=== PATIENT | male | born 1945 | race Caucasian/White ===

== ENCOUNTER 2016-11-02 21:40 | Inpatient (IN) | payer OTHER ==
[~2016-11-02] VITALS: Ht 182.9 cm; Wt 120.4 kg
[~2016-11-02 21:40] MED LIST: AMLODIPINE BESYL5 MG PO; ASPIR 8181 M1 PO; ASPIR-LOW81 MG PO; ATIVAN1 MG PO; AVINZA30 MG PO; B-12500 MC1 SL; CELEBREX200 MG PO; CELECOXIB100 MG PO; CENTRUM SILVER1 EAC1 PO; CENTRUM SILVER1 EAC3 PO; CEREFOLIN NAC1 EAC1 PO; CIPRO500 MG PO; CIPROFLOXACIN500 M1 PO; CRESTOR10 MG PO; CYANOCOBALAM1000 MCG PO; DILAUDID4 MG PO; DIOVAN HCT 31 TABLE1 PO; ERGOCALCIF50000 UNIT PO; FISH OIL 1,0001 EAC7 PO; FLEXERIL10 MG PO; FLOMAX0.4 MG PO; FLUTICASONE PRO16 GM BOTH NARES; GABAPENTIN300 MG PO; ISOSORBIDE MONO30 MG PO; KADIAN30 MG PO; KLOR-CON 1010 ME1 PO; KLOR-CON M1010 MEQ PO; KLOR-CON M2020 MEQ PO; LIDOCAINE700 MG TD; LIPITOR20 MG PO; LO-DOSE ASPIRIN81 M1 PO; LOPRESSOR25 MG PO; LORAZEPAM1 MG PO; LORAZEPAM2 MG PO; LYCOPENE10 MG PO; LYRICA100 MG PO; MELOXICAM7.5 MG PO; METOPROLOL TART25 MG PO; MORPHINE SULFAT15 MG PO; MORPHINE SULFAT30 M2 PO; MS CONTIN,ORAMO30 MG PO; MYRBETRIQ50 MG PO; NAMENDA10 MG PO; NEURONTIN100 MG PO; NEURONTIN300 MG PO; NEXIUM 24HR20 MG PO; NEXIUM40 MG PO; NIACIN1000 MG PO; NITROSTAT0.4 MG SL; NORVASC5 MG PO; NOVOLOG MI100 UNIT/4 SC; NOVOLOG MI100 UNIT/M PO; NOVOLOG MI100 UNIT/M SC; NUCYNTA ER250 MG PO; OXYCODONE HCL10 MG PO; PERCOCET 5/31 TABLET PO; PLAVIX75 MG PO; PRAVASTATIN SOD40 MG PO; PREDNISONE10 MG PO; SAW PALMETTO160 MG PO; SLEEP AID25 M1 PO; THERALITH XR T1 EACH PO; TRAMADOL HCL50 MG PO; VALSARTAN160 MG PO; VITAMIN B-12500 MC3 PO; VITAMIN D250000 UNIT PO; VOLTAREN 1% GE100 GM TP; WELCHOL625 MG PO; ZETIA10 MG PO; ZYRTEC10 M3 PO
[2016-11-02 22:00] LABS: BICARBONATE 27.1 mEq/L (22-26); CARBOXY HGB 2.4 % (0-5); COMMENTS - BLOOD GASES A+C+; DEVICE NC; METHEMOGLOBIN 0.8 % (0-1.5); O2 FLOW 4 L/MIN; PCO2 48 mm Hg (35-45); PO2 75 mm Hg (80-100); SITE LR; TOTAL RESP RATE 21 resp/min; pH 7.36 (7.35-7.45)
[2016-11-02 22:06] LABS: ADD MIUA? YES; BILIRUBIN NEGATIVE; BLOOD LARGE; COLOR AMBER ((YELLOW)); GLUCOSE (STRIP) NEGATIVE; KETONES NEGATIVE; LEUKOCYTES LARGE; NITRITE NEGATIVE; PROTEIN (STRIP) 100; SPECIFIC GRAVITY 1.013 (1.000-1.030)
[2016-11-02] MEDS ORDERED: ARYMO ER30 MG PO (22:21)
[2016-11-02] MEDS ORDERED: OXYCODONE HCL10 MG PO (22:21)
[2016-11-02 22:26] LABS: EPITHELIAL CELLS RARE /HPF; RED BLOOD CELLS TNTC /HPF (0-5); WHITE BLOOD CELLS TNTC /HPF (0-5)
[2016-11-02 22:27] LABS: BACTERIA 3+ /HPF; CASTS NONE SEEN /LPF; CRYSTALS NONE SEEN; MUCUS NONE SEEN /LPF; UCUL ADDED? YES
[2016-11-02 23:09] LABS: EOSINOPHIL (%) 0 % (0-5); HEMATOCRIT 39.1 % (38.0-50.0); IMMATURE GRANULOCYTE (%) 0.5 % (0.0-0.7); IMMATURE GRANULOCYTE COUNT 0.1 K/uL; INSTRUMENT ABS NEUTROPHIL CT 7.2 K/uL; LYMPHOCYTE COUNT 1.5 K/uL (1.0-2.8); MCH 33.9 PG (29.0-34.0); MCHC 33.5 G/DL (30.0-36.0); MCV 101.3 FL (86-99); MEAN PLAT.VOLUME 9.9 uM^3 (9.0-12.4); MONOCYTE (%) 9.5 % (3-12); MONOCYTE COUNT 0.9 K/uL (0-0.8); NEUTROPHIL (%) 74.6 % (45-76); NEUTROPHIL COUNT 7.2 K/uL (1.8-6.4); PLATELET COUNT 190 K/uL (156-360); RBC DIS.WIDTH-SD 45.1 % (39-53); RED BLOOD COUNT 3.86 M/uL (4.00-5.50); WHITE BLOOD COUNT 9.7 K/uL (4.1-10.2)
[2016-11-02 23:19] LABS: CHLORIDE 98 mEq/L (99-109); POTASSIUM 3.5 mEq/L (3.7-5.4); SODIUM 138 mEq/L (136-147)
[2016-11-02 23:21] LABS: GLUCOSE 119 mg/dL (70-99); INTER. NORMALIZED RATIO 1.1; PROTHROMBIN TIME 11.6 (9.2-11.2); PTT 29.9 (25-32)
[2016-11-02 23:23] LABS: ANION GAP 13 MEQ/L (2-14); TOTAL BILIRUBIN 0.8 mg/dL (0.0-1.0)
[2016-11-02 23:25] LABS: ALKALINE PHOSPHATASE 68 IU/L (3-129); GFR ESTIMATE (CALCULATED) 17 mL/min/
[2016-11-02 23:26] LABS: UREA NITROGEN (BUN) 41 mg/dL (9-23)
[2016-11-02 23:28] LABS: LIPASE 30 U/L (1.0-51.0); TROP-I INTERPRETATION NEGATIVE; TROPONIN-I 0.02 ng/mL (0.0-0.30)
[2016-11-03] VITALS (23 sets, daily range): BP systolic 84–158; BP diastolic 57–106
[2016-11-03 04:37] LABS: METH RESISTANT S AUREUS PCR NEGATIVE (NEGATIVE)
[2016-11-03 04:39] LABS: PROBE CHECK PASS; SPECIMEN PROCESSING CONTROL PASS
[2016-11-03 05:24] LABS: HEMATOCRIT 37.1 % (38.0-50.0); MCH 34.2 PG (29.0-34.0); MCHC 33.7 G/DL (30.0-36.0); MCV 101.6 FL (86-99); MEAN PLAT.VOLUME 9.9 uM^3 (9.0-12.4); PLATELET COUNT 182 K/uL (156-360); RBC DIS.WIDTH-CV 11.9 % (11.8-14.6); RED BLOOD COUNT 3.65 M/uL (4.00-5.50)
[2016-11-03 05:50] LABS: ANION GAP 11 MEQ/L (2-14); CHLORIDE 100 MEQ/L (99-109); GFR ESTIMATE (CALCULATED) 24 mL/min/; GLUCOSE 128 mg/dL (70-99); MAGNESIUM 1.7 mg/dl (1.3-2.7); POTASSIUM 3.5 MEQ/L (3.7-5.4); SAMPLE HEMOLYSIS CHECK 0; SAMPLE ICTERIC CHECK 0; SAMPLE LIPEMIA CHECK 0; SODIUM 139 MEQ/L (136-147); UREA NITROGEN (BUN) 39 mg/dL (9-23)
[2016-11-03 11:46] LABS: POINT-OF-CARE METER ID UU13113748
[2016-11-04] VITALS (22 sets, daily range): BP systolic 0–202; BP diastolic 0–128
[2016-11-04 00:04] LABS: POINT-OF-CARE METER ID UU14174217
[2016-11-04 06:08] LABS: HEMATOCRIT 41.6 % (38.0-50.0); MCH 34.6 PG (29.0-34.0); MCHC 35.8 G/DL (30.0-36.0); PLATELET COUNT 161 K/uL (156-360); RBC DIS.WIDTH-CV 11.2 % (11.8-14.6); RBC DIS.WIDTH-SD 39.9 % (39-53); RED BLOOD COUNT 4.31 M/uL (4.00-5.50); WHITE BLOOD COUNT 9.8 K/uL (4.1-10.2)
[2016-11-04 06:12] LABS: MCV 96.5 FL (86-99)
[2016-11-04 06:23] LABS: POINT-OF-CARE METER ID UU13113803
[2016-11-04 06:39] LABS: ANION GAP 10 MEQ/L (2-14); CHLORIDE 99 MEQ/L (99-109); GLUCOSE 170 mg/dL (70-99); MAGNESIUM 1.7 mg/dl (1.3-2.7); POTASSIUM 3.4 MEQ/L (3.7-5.4); SAMPLE HEMOLYSIS CHECK 0; SAMPLE ICTERIC CHECK 0; SAMPLE LIPEMIA CHECK 0; SODIUM 139 MEQ/L (136-147); UREA NITROGEN (BUN) 24 mg/dL (9-23)
[2016-11-04 06:48] LABS: GFR ESTIMATE (CALCULATED) > 59 mL/min/
[2016-11-04 13:06] LABS: POINT-OF-CARE METER ID UU13113748
[2016-11-04 17:02] LABS: POINT-OF-CARE METER ID UU13113803
[2016-11-04 21:55] LABS: POINT-OF-CARE METER ID UU13113748
[2016-11-05] VITALS (16 sets, daily range): BP systolic 138–185; BP diastolic 81–129
[2016-11-05 07:10] LABS: C DIFF TOXIN NEGATIVE (NEGATIVE)
[2016-11-05 07:11] LABS: PROBE CHECK PASS; SPECIMEN PROCESSING CONTROL PASS
[2016-11-05 08:27] LABS: HEMATOCRIT 43.8 % (38.0-50.0); MCH 35.1 PG (29.0-34.0); MCHC 37.2 G/DL (30.0-36.0); MCV 94.4 FL (86-99); MEAN PLAT.VOLUME 9.6 uM^3 (9.0-12.4); PLATELET COUNT 179 K/uL (156-360); RBC DIS.WIDTH-CV 11.4 % (11.8-14.6); RED BLOOD COUNT 4.64 M/uL (4.00-5.50); WHITE BLOOD COUNT 8.5 K/uL (4.1-10.2)
[2016-11-05 08:51] LABS: ANION GAP 13 MEQ/L (2-14); CHLORIDE 97 MEQ/L (99-109); GFR ESTIMATE (CALCULATED) > 59 mL/min/; GLUCOSE 164 mg/dL (70-99); MAGNESIUM 1.5 mg/dl (1.3-2.7); POTASSIUM 2.8 MEQ/L (3.7-5.4); SAMPLE HEMOLYSIS CHECK 0; SAMPLE ICTERIC CHECK 0; SAMPLE LIPEMIA CHECK 0; SODIUM 139 MEQ/L (136-147); UREA NITROGEN (BUN) 15 mg/dL (9-23)
[2016-11-06 06:40] VITALS: BP 152/99
[2016-11-06 07:05] LABS: HEMATOCRIT 45.9 % (38.0-50.0); MCH 33.3 PG (29.0-34.0); MCHC 35.5 G/DL (30.0-36.0); MCV 93.9 FL (86-99); MEAN PLAT.VOLUME 9.4 uM^3 (9.0-12.4); RBC DIS.WIDTH-CV 11.4 % (11.8-14.6); RBC DIS.WIDTH-SD 38.8 % (39-53); RED BLOOD COUNT 4.89 M/uL (4.00-5.50)
[2016-11-06 07:08] LABS: PLATELET COUNT 238 K/uL (156-360)
[2016-11-06 07:26] LABS: ANION GAP 13 MEQ/L (2-14); CHLORIDE 101 MEQ/L (99-109); GFR ESTIMATE (CALCULATED) > 59 mL/min/; GLUCOSE 169 mg/dL (70-99); MAGNESIUM 1.5 mg/dl (1.3-2.7); SAMPLE HEMOLYSIS CHECK 0; SAMPLE ICTERIC CHECK 0; SAMPLE LIPEMIA CHECK 0; SODIUM 139 MEQ/L (136-147); UREA NITROGEN (BUN) 14 mg/dL (9-23)
[2016-11-06 07:27] LABS: POTASSIUM 3.4 MEQ/L (3.7-5.4)
[2016-11-06 15:05] VITALS: BP 165/84
[2016-11-06 16:26] LABS: POINT-OF-CARE METER ID UU13113725
[2016-11-06 23:20] VITALS: BP 162/91
[2016-11-07 06:48] LABS: HEMATOCRIT 46.3 % (38.0-50.0); MCH 33.8 PG (29.0-34.0); MCHC 34.3 G/DL (30.0-36.0); MEAN PLAT.VOLUME 9.3 uM^3 (9.0-12.4); PLATELET COUNT 209 K/uL (156-360); RBC DIS.WIDTH-CV 11.4 % (11.8-14.6); RBC DIS.WIDTH-SD 41.3 % (39-53); RED BLOOD COUNT 4.71 M/uL (4.00-5.50); WHITE BLOOD COUNT 9.4 K/uL (4.1-10.2)
[2016-11-07 07:05] LABS: MCV 98.3 FL (86-99)
[2016-11-07 07:07] LABS: ANION GAP 11 MEQ/L (2-14); CHLORIDE 101 MEQ/L (99-109); GFR ESTIMATE (CALCULATED) > 59 mL/min/; GLUCOSE 174 mg/dL (70-99); MAGNESIUM 1.6 mg/dl (1.3-2.7); POTASSIUM 3.3 MEQ/L (3.7-5.4); SAMPLE HEMOLYSIS CHECK 0; SAMPLE ICTERIC CHECK 0; SAMPLE LIPEMIA CHECK 0; SODIUM 138 MEQ/L (136-147); UREA NITROGEN (BUN) 17 mg/dL (9-23)
[2016-11-07 07:31] VITALS: BP 132/80
[2016-11-07] MEDS ORDERED: AMPICILLIN TRI500 MG PO (11:36)
== END 2016-11-07 15:30 | disposition home or self-care (01) | DRG 871 ==
LOC: EME → EDBD 21:40 → EME 21:40 → 4WEST 11-03 00:57 → EDOF 11-03 00:57 → 4WEST 11-03 02:31 → 5EAST 11-05 16:03
PROVIDERS: Emergency Medicine; Hospitalist; Internal Medicine; Internal Medicine Critical Care Medicine; Student in an Organized Health Care Education/Training Program
DX: A41.9 Sepsis, unspecified organism (principal); N39.0 Urinary tract infection, site not specified; F41.9 Anxiety disorder, unspecified; I10 Essential (primary) hypertension; I25.10 Atherosclerotic heart disease of native coronary artery without angina pectoris; J96.91 Respiratory failure, unspecified with hypoxia; J98.11 Atelectasis; G93.41 Metabolic encephalopathy; E86.1 Hypovolemia; R65.21 Severe sepsis with septic shock; K21.9 Gastro-esophageal reflux disease without esophagitis; E78.5 Hyperlipidemia, unspecified; G89.29 Other chronic pain; E11.9 Type 2 diabetes mellitus without complications; F02.80 Dementia in other diseases classified elsewhere, unspecified severity, without behavioral disturbance, psychotic disturbance, mood disturbance, and anxiety; G30.9 Alzheimer's disease, unspecified; N17.9 Acute kidney failure, unspecified; I48.91 Unspecified atrial fibrillation; Z86.73 Personal history of transient ischemic attack (TIA), and cerebral infarction without residual deficits; Z87.442 Personal history of urinary calculi; Z87.891 Personal history of nicotine dependence; Z79.4 Long term (current) use of insulin; Z95.5 Presence of coronary angioplasty implant and graft
CPT/HCPCS: 36600; 70450; 71010; 80048; 80048 91; 80053; 81003; 82803; 82948; 83605; 83690; 83735; 84100; 84484; 85025; 85027; 85610; 85730; 87040; 87077; 87086; 87186; 87493; 87641; 93005; 94799; 99281; 99285; J0696; J1630; J1644; J1815; J2543; J3010; J3260; J3370; J3475; J3480; J7030; J7050; J7120; S0028

== ENCOUNTER 2016-11-17 19:04 | Inpatient (IN) | payer OTHER ==
[~2016-11-17] VITALS: Ht 182.9 cm; Wt 147.5 kg
[~2016-11-17 19:04] MED LIST changes: +AMPICILLIN TRI500 MG PO; +ARYMO ER30 MG PO
[2016-11-17 20:06] LABS: ADD MIUA? YES; BILIRUBIN NEGATIVE; BLOOD NEGATIVE; COLOR AMBER ((YELLOW)); GLUCOSE (STRIP) 50; KETONES NEGATIVE; LEUKOCYTES NEGATIVE; NITRITE NEGATIVE; PROTEIN (STRIP) 30; SPECIFIC GRAVITY 1.015 (1.000-1.030); UROBILINOGEN 0.2 MG/DL (0.2-1.0)
[2016-11-17 20:13] LABS: BACTERIA RARE /HPF; EPITHELIAL CELLS RARE /HPF; MUCUS 1+ /LPF; RED BLOOD CELLS 0-5 /HPF (0-5); UCUL ADDED? NO; WHITE BLOOD CELLS 0-5 /HPF (0-5)
[2016-11-17 20:35] LABS: CHLORIDE 103 mEq/L (99-109); POTASSIUM 3.9 mEq/L (3.7-5.4); SODIUM 141 mEq/L (136-147)
[2016-11-17 20:37] LABS: GLUCOSE 111 mg/dL (70-99)
[2016-11-17 20:38] LABS: ANION GAP 11 MEQ/L (2-14)
[2016-11-17 20:39] LABS: TOTAL BILIRUBIN 0.6 mg/dL (0.0-1.0)
[2016-11-17 20:41] LABS: ALKALINE PHOSPHATASE 93 IU/L (3-129); GFR ESTIMATE (CALCULATED) 21 mL/min/; INTER. NORMALIZED RATIO 1.1; PROTHROMBIN TIME 11.4 (9.2-11.2); PTT 26.6 (25-32)
[2016-11-17 20:42] LABS: UREA NITROGEN (BUN) 24 mg/dL (9-23)
[2016-11-17 20:44] LABS: LIPASE 33 U/L (1.0-51.0); TROP-I INTERPRETATION NEGATIVE; TROPONIN-I 0.02 ng/mL (0.0-0.30)
[2016-11-17 20:50] LABS: EOSINOPHIL (%) 0 % (0-5); HEMATOCRIT 40.4 % (38.0-50.0); IMMATURE GRANULOCYTE (%) 0.7 % (0.0-0.7); IMMATURE GRANULOCYTE COUNT 0.1 K/uL; INSTRUMENT ABS NEUTROPHIL CT 7.6 K/uL; LYMPHOCYTE COUNT 2.2 K/uL (1.0-2.8); MCH 33.9 PG (29.0-34.0); MCHC 33.4 G/DL (30.0-36.0); MCV 101.5 FL (86-99); MEAN PLAT.VOLUME 9.7 uM^3 (9.0-12.4); MONOCYTE (%) 8.3 % (3-12); MONOCYTE COUNT 0.9 K/uL (0-0.8); NEUTROPHIL (%) 70.5 % (45-76); NEUTROPHIL COUNT 7.6 K/uL (1.8-6.4); PLATELET COUNT 188 K/uL (156-360); RBC DIS.WIDTH-CV 12.4 % (11.8-14.6); RBC DIS.WIDTH-SD 46.8 % (39-53); RED BLOOD COUNT 3.98 M/uL (4.00-5.50); WHITE BLOOD COUNT 10.7 K/uL (4.1-10.2)
[2016-11-18] VITALS (26 sets, daily range): BP systolic 0–155; BP diastolic 0–88
[2016-11-18 01:05] LABS: BASE EXCESS -2.3 mEq/L (-3 to +3); BICARBONATE 25.3 mEq/L (22-26); CARBOXY HGB 2.5 % (0-5); METHEMOGLOBIN 0.8 % (0-1.5); PCO2 55 mm Hg (35-45); PO2 72 mm Hg (80-100)
[2016-11-18 01:06] LABS: COMMENTS - BLOOD GASES C+A+; DEVICE NC; O2 FLOW 1 L/MIN; SITE LR
[2016-11-18 01:07] LABS: pH 7.27 (7.35-7.45)
[2016-11-18 02:57] LABS: METH RESISTANT S AUREUS PCR NEGATIVE (NEGATIVE)
[2016-11-18 03:00] LABS: PROBE CHECK PASS; SPECIMEN PROCESSING CONTROL PASS
[2016-11-18 05:24] LABS: POINT-OF-CARE METER ID UU14174217
[2016-11-18 05:44] LABS: TROP-I INTERPRETATION NEGATIVE; TROPONIN-I < 0.01 ng/mL (0.0-0.30)
[2016-11-18 06:04] LABS: ANION GAP 10 MEQ/L (2-14); CHLORIDE 108 MEQ/L (99-109); GLUCOSE 141 mg/dL (70-99); MAGNESIUM 1.2 mg/dl (1.3-2.7); SAMPLE HEMOLYSIS CHECK 0; SAMPLE ICTERIC CHECK 0; SAMPLE LIPEMIA CHECK 0; SODIUM 141 MEQ/L (136-147); UREA NITROGEN (BUN) 22 mg/dL (9-23)
[2016-11-18 06:10] LABS: HEMATOCRIT 33.6 % (38.0-50.0); MCH 35.3 PG (29.0-34.0); MCHC 33.9 G/DL (30.0-36.0); MEAN PLAT.VOLUME 10.1 uM^3 (9.0-12.4); PLATELET COUNT 144 K/uL (156-360); RBC DIS.WIDTH-CV 12.8 % (11.8-14.6); RBC DIS.WIDTH-SD 48.4 % (39-53); RED BLOOD COUNT 3.23 M/uL (4.00-5.50)
[2016-11-18 06:33] LABS: GFR ESTIMATE (CALCULATED) 27 mL/min/
[2016-11-18 11:51] LABS: POINT-OF-CARE METER ID UU13113803; POINT-OF-CARE USER ID AGYTJR
[2016-11-18 13:03] LABS: TROP-I INTERPRETATION NEGATIVE; TROPONIN-I 0.02 ng/mL (0.0-0.30)
[2016-11-18 17:36] LABS: POINT-OF-CARE METER ID UU13113803; POINT-OF-CARE USER ID AGYTJR
[2016-11-18 18:13] LABS: TROP-I INTERPRETATION NEGATIVE; TROPONIN-I 0.01 ng/mL (0.0-0.30)
[2016-11-19] VITALS (8 sets, daily range): BP systolic 124–187; BP diastolic 81–113
[2016-11-19 00:01] LABS: POINT-OF-CARE METER ID UU13113698
[2016-11-19 00:26] LABS: POINT-OF-CARE METER ID UU13113781
[2016-11-19 06:04] LABS: POINT-OF-CARE METER ID UU14174216
[2016-11-19 07:27] LABS: MCH 33.6 PG (29.0-34.0); MCHC 34.1 G/DL (30.0-36.0); MCV 98.7 FL (86-99); MEAN PLAT.VOLUME 10.4 uM^3 (9.0-12.4); PLATELET COUNT 118 K/uL (156-360); RBC DIS.WIDTH-CV 11.9 % (11.8-14.6); RBC DIS.WIDTH-SD 43.8 % (39-53); RED BLOOD COUNT 3.75 M/uL (4.00-5.50); WHITE BLOOD COUNT 5.9 K/uL (4.1-10.2)
[2016-11-19 07:35] LABS: ANION GAP 9 MEQ/L (2-14); CHLORIDE 107 MEQ/L (99-109); GLUCOSE 125 mg/dL (70-99); POTASSIUM 3.7 MEQ/L (3.7-5.4); SAMPLE HEMOLYSIS CHECK 1; SAMPLE ICTERIC CHECK 0; SAMPLE LIPEMIA CHECK 0; SODIUM 141 MEQ/L (136-147); UREA NITROGEN (BUN) 14 mg/dL (9-23)
[2016-11-19 07:36] LABS: GFR ESTIMATE (CALCULATED) 49 mL/min/; MAGNESIUM 1.9 mg/dl (1.3-2.7)
[2016-11-19 11:15] LABS: D-DIMER ELISA 3.78 mg/L FEU (< 0.57)
[2016-11-19 14:26] LABS: POINT-OF-CARE METER ID UU14174216
[2016-11-19 23:50] LABS: POINT-OF-CARE METER ID UU13113781
[2016-11-20] VITALS (7 sets, daily range): BP systolic 105–174; BP diastolic 51–109
[2016-11-20 05:35] LABS: HEMATOCRIT 35.5 % (38.0-50.0); MCH 34.3 PG (29.0-34.0); MCHC 35.5 G/DL (30.0-36.0); MCV 96.7 FL (86-99); MEAN PLAT.VOLUME 11.1 uM^3 (9.0-12.4); PLATELET COUNT 112 K/uL (156-360); RBC DIS.WIDTH-CV 11.6 % (11.8-14.6); RED BLOOD COUNT 3.67 M/uL (4.00-5.50); WHITE BLOOD COUNT 7.3 K/uL (4.1-10.2)
[2016-11-20 06:03] LABS: ANION GAP 10 MEQ/L (2-14); CHLORIDE 101 MEQ/L (99-109); GFR ESTIMATE (CALCULATED) > 59 mL/min/; GLUCOSE 120 mg/dL (70-99); MAGNESIUM 1.5 mg/dl (1.3-2.7); POTASSIUM 3.5 MEQ/L (3.7-5.4); SAMPLE HEMOLYSIS CHECK 1; SAMPLE ICTERIC CHECK 0; SAMPLE LIPEMIA CHECK 0; SODIUM 139 MEQ/L (136-147); UREA NITROGEN (BUN) 10 mg/dL (9-23)
[2016-11-20] MEDS ORDERED: ASPIR-LOW81 MG PO (14:29)
[2016-11-20] MEDS ORDERED: METOPROLOL TART50 MG PO (14:32)
[2016-11-20] MEDS ORDERED: MORPHINE SULFAT30 M2 PO (14:34)
[2016-11-20] MEDS ORDERED: CARISOPRODOL350 MG PO (14:34)
[2016-11-20] MEDS ORDERED: ATORVASTATIN CA10 MG PO (14:37)
[2016-11-20] MEDS ORDERED: TAMSULOSIN HCL0.4 MG PO (14:38)
[2016-11-20] MEDS ORDERED: VALSARTAN-HCTZ1 EAC3 PO (14:42)
[2016-11-20 20:56] LABS: POINT-OF-CARE USER ID ENVMNS
[2016-11-21] VITALS (7 sets, daily range): BP systolic 151–197; BP diastolic 82–121
[2016-11-21 05:59] LABS: HEMATOCRIT 37.7 % (38.0-50.0); MCH 34.5 PG (29.0-34.0); MCHC 36.1 G/DL (30.0-36.0); MCV 95.7 FL (86-99); MEAN PLAT.VOLUME 9.7 uM^3 (9.0-12.4); PLATELET COUNT 134 K/uL (156-360); RBC DIS.WIDTH-CV 11.7 % (11.8-14.6); RBC DIS.WIDTH-SD 40.6 % (39-53); RED BLOOD COUNT 3.94 M/uL (4.00-5.50)
[2016-11-21 06:21] LABS: ANION GAP 11 MEQ/L (2-14); CHLORIDE 100 MEQ/L (99-109); GFR ESTIMATE (CALCULATED) > 59 mL/min/; GLUCOSE 111 mg/dL (70-99); MAGNESIUM 1.6 mg/dl (1.3-2.7); POTASSIUM 2.8 MEQ/L (3.7-5.4); SAMPLE HEMOLYSIS CHECK 0; SAMPLE ICTERIC CHECK 0; SAMPLE LIPEMIA CHECK 0; SODIUM 140 MEQ/L (136-147); UREA NITROGEN (BUN) 10 mg/dL (9-23)
[2016-11-21 18:37] LABS: ANION GAP 13 MEQ/L (2-14); CHLORIDE 100 MEQ/L (99-109); GFR ESTIMATE (CALCULATED) > 59 mL/min/; GLUCOSE 133 mg/dL (70-99); MAGNESIUM 1.8 mg/dl (1.3-2.7); POTASSIUM 3.8 MEQ/L (3.7-5.4); SAMPLE HEMOLYSIS CHECK 2; SAMPLE ICTERIC CHECK 0; SAMPLE LIPEMIA CHECK 0; SODIUM 139 MEQ/L (136-147); UREA NITROGEN (BUN) 11 mg/dL (9-23)
[2016-11-22 00:01] VITALS: BP 179/113
[2016-11-22 04:26] LABS: HEMATOCRIT 38.5 % (38.0-50.0); MCH 33.7 PG (29.0-34.0); MCHC 35.6 G/DL (30.0-36.0); MCV 94.8 FL (86-99); MEAN PLAT.VOLUME 9.6 uM^3 (9.0-12.4); PLATELET COUNT 147 K/uL (156-360); RBC DIS.WIDTH-CV 11.6 % (11.8-14.6); RBC DIS.WIDTH-SD 40.3 % (39-53); RED BLOOD COUNT 4.06 M/uL (4.00-5.50); WHITE BLOOD COUNT 6.3 K/uL (4.1-10.2)
[2016-11-22 04:30] VITALS: BP 164/91
[2016-11-22 04:39] LABS: CHLORIDE 105 mEq/L (99-109); POTASSIUM 3.4 mEq/L (3.7-5.4)
[2016-11-22 04:40] LABS: MAGNESIUM 1.6 mg/dL (1.3-2.7); SODIUM 141 mEq/L (136-147)
[2016-11-22 04:42] LABS: GLUCOSE 113 mg/dL (70-99)
[2016-11-22 04:43] LABS: ANION GAP 10 MEQ/L (2-14)
[2016-11-22 04:45] LABS: GFR ESTIMATE (CALCULATED) > 59 mL/min/
[2016-11-22 04:46] LABS: UREA NITROGEN (BUN) 12 mg/dL (9-23)
[2016-11-22 07:50] LABS: POINT-OF-CARE METER ID UU13113698; POINT-OF-CARE USER ID ENVKC36
[2016-11-22 08:10] VITALS: BP 195/120
[2016-11-22 11:58] LABS: POINT-OF-CARE METER ID UU13113781
[2016-11-22 14:02] VITALS: BP 180/120
[2016-11-22 15:49] VITALS: BP 160/80
[2016-11-22 16:54] LABS: POINT-OF-CARE METER ID UU13113781
[2016-11-22 20:15] VITALS: BP 162/97
[2016-11-22 21:03] LABS: POINT-OF-CARE METER ID UU13113698
[2016-11-23] VITALS: BP 154/87
[2016-11-23 02:30] VITALS: BP 164/78
[2016-11-23 04:46] LABS: EOSINOPHIL (%) 0 % (0-5); HEMATOCRIT 38.4 % (38.0-50.0); IMMATURE GRANULOCYTE (%) 0.2 % (0.0-0.7); INSTRUMENT ABS NEUTROPHIL CT 4.6 K/uL; LYMPHOCYTE COUNT 1.3 K/uL (1.0-2.8); MCH 33.6 PG (29.0-34.0); MCHC 35.2 G/DL (30.0-36.0); MCV 95.5 FL (86-99); MONOCYTE (%) 7.9 % (3-12); MONOCYTE COUNT 0.5 K/uL (0-0.8); NEUTROPHIL (%) 71.5 % (45-76); NEUTROPHIL COUNT 4.6 K/uL (1.8-6.4); PLATELET COUNT 151 K/uL (156-360); RBC DIS.WIDTH-CV 11.8 % (11.8-14.6); RBC DIS.WIDTH-SD 40.8 % (39-53); RED BLOOD COUNT 4.02 M/uL (4.00-5.50); WHITE BLOOD COUNT 6.4 K/uL (4.1-10.2)
[2016-11-23 05:01] LABS: CHLORIDE 108 mEq/L (99-109); MAGNESIUM 1.6 mg/dL (1.3-2.7); POTASSIUM 3.8 mEq/L (3.7-5.4); SODIUM 143 mEq/L (136-147)
[2016-11-23 05:03] LABS: GLUCOSE 122 mg/dL (70-99)
[2016-11-23 05:04] LABS: ANION GAP 10 MEQ/L (2-14)
[2016-11-23 05:07] LABS: GFR ESTIMATE (CALCULATED) > 59 mL/min/; UREA NITROGEN (BUN) 12 mg/dL (9-23)
[2016-11-23 07:29] VITALS: BP 138/77
[2016-11-23 07:55] LABS: POINT-OF-CARE METER ID UU13113781; POINT-OF-CARE USER ID NUTSLF44
[2016-11-23 11:39] VITALS: BP 165/79
[2016-11-23 12:42] LABS: POINT-OF-CARE METER ID UU13113781; POINT-OF-CARE USER ID NUTSLF44
[2016-11-23 15:09] VITALS: BP 183/91
[2016-11-23] MEDS ORDERED: ELIQUIS5 MG PO (16:08)
[2016-11-23] MEDS ORDERED: LOPRESSOR100 M1 PO (16:08)
[2016-11-23] MEDS ORDERED: DILTIAZEM 24HR180 MG PO (16:08)
[2016-11-23] MEDS ORDERED: AMOX TR-K CLV1 EAC4 PO (16:08)
[2016-11-23] MEDS ORDERED: MORPHINE SULFAT15 M1 PO (16:15)
[2016-11-23] MEDS ORDERED: MORPHINE SULFAT15 MG PO (16:15)
[2016-11-23] MEDS ORDERED: SENNA-DOCUSATE1 EAC1 PO (16:16)
[2016-11-23] MEDS ORDERED: LISINOPRIL10 MG PO (16:17)
[2016-11-23] MEDS ORDERED: KLOR-CON M1010 MEQ PO (16:19)
== END 2016-11-23 16:59 | disposition home health service (06) | DRG 871 ==
LOC: EME → EDBD 19:04 → EME 19:04 → 4EAST 23:26 → 4WEST 23:26 → EDOF 23:26 → 4WEST 11-18 01:31 → 4EAST 11-18 20:42
PROVIDERS: Emergency Medicine; Hospitalist; Student in an Organized Health Care Education/Training Program
DX: A41.9 Sepsis, unspecified organism (principal); J96.01 Acute respiratory failure with hypoxia; J18.9 Pneumonia, unspecified organism; G93.41 Metabolic encephalopathy; N17.9 Acute kidney failure, unspecified; R65.21 Severe sepsis with septic shock; E86.0 Dehydration; E86.1 Hypovolemia; E87.2 Acidosis; I48.2 Chronic atrial fibrillation; I27.2 Other secondary pulmonary hypertension; E87.6 Hypokalemia; I10 Essential (primary) hypertension; I25.10 Atherosclerotic heart disease of native coronary artery without angina pectoris; E11.9 Type 2 diabetes mellitus without complications; E78.5 Hyperlipidemia, unspecified; G30.9 Alzheimer's disease, unspecified; F02.80 Dementia in other diseases classified elsewhere, unspecified severity, without behavioral disturbance, psychotic disturbance, mood disturbance, and anxiety; F31.9 Bipolar disorder, unspecified; F41.9 Anxiety disorder, unspecified; G89.29 Other chronic pain; M48.00 Spinal stenosis, site unspecified; K21.9 Gastro-esophageal reflux disease without esophagitis; N40.0 Benign prostatic hyperplasia without lower urinary tract symptoms; Y95 Nosocomial condition; Z79.02 Long term (current) use of antithrombotics/antiplatelets; Z79.4 Long term (current) use of insulin; Z79.82 Long term (current) use of aspirin; I69.30 Unspecified sequelae of cerebral infarction; Z87.891 Personal history of nicotine dependence; Z95.5 Presence of coronary angioplasty implant and graft
CPT/HCPCS: 36600; 70450; 71010; 71250; 73630; 74000; 80048; 80048 91; 80053; 81003; 82803; 82948; 83605; 83690; 83735; 83880; 84100; 84484; 85025; 85027; 85379; 85610; 85730; 87040; 87641; 92610 GN; 93005; 93306; 94799; 99281; 99285; J0456; J1630; J1644; J1650; J1815; J2060; J2543; J3370; J3475; J3480; J7030; J7050; J7120; P9045; S0028

== ENCOUNTER 2016-12-09 13:10 | Inpatient (IN) | payer OTHER ==
[~2016-12-09] VITALS: Ht 182.9 cm; Wt 116.9 kg
[~2016-12-09 13:10] MED LIST changes: +AMOX TR-K CLV1 EAC4 PO; +ATORVASTATIN CA10 MG PO; +CARISOPRODOL350 MG PO; +DILTIAZEM 24HR180 MG PO; +ELIQUIS5 MG PO; +LISINOPRIL10 MG PO; +LOPRESSOR100 M1 PO; +METOPROLOL TART50 MG PO; +MORPHINE SULFAT15 M1 PO; +SENNA-DOCUSATE1 EAC1 PO; +TAMSULOSIN HCL0.4 MG PO; +VALSARTAN-HCTZ1 EAC3 PO
[2016-12-09 14:26] LABS: HEMATOCRIT 40.1 % (38.0-50.0); MCH 34.2 PG (29.0-34.0); MCHC 33.7 G/DL (30.0-36.0); MCV 101.5 FL (86-99); PLATELET COUNT 173 K/uL (156-360); RBC DIS.WIDTH-CV 13.1 % (11.8-14.6); RBC DIS.WIDTH-SD 49.1 % (39-53); RED BLOOD COUNT 3.95 M/uL (4.00-5.50); WHITE BLOOD COUNT 9.8 K/uL (4.1-10.2)
[2016-12-09 14:32] LABS: CHLORIDE 102 mEq/L (99-109); POTASSIUM 3.8 mEq/L (3.7-5.4); SODIUM 141 mEq/L (136-147)
[2016-12-09 14:33] LABS: MAGNESIUM 1.9 mg/dL (1.3-2.7)
[2016-12-09 14:34] LABS: GLUCOSE 125 mg/dL (70-99)
[2016-12-09 14:36] LABS: ANION GAP 12 MEQ/L (2-14); TOTAL BILIRUBIN 0.9 mg/dL (0.0-1.0)
[2016-12-09 14:38] LABS: ALKALINE PHOSPHATASE 96 IU/L (3-129); GFR ESTIMATE (CALCULATED) 22 mL/min/
[2016-12-09 14:39] LABS: UREA NITROGEN (BUN) 45 mg/dL (9-23)
[2016-12-09 14:41] LABS: CREATINE KINASE 86 IU/L (1-294); TOTAL CK 86 IU/L (1-294)
[2016-12-09 14:43] LABS: TROP-I INTERPRETATION NEGATIVE; TROPONIN-I < 0.01 ng/mL (0.0-0.30)
[2016-12-09 14:47] LABS: CK-MB 2.2 ng/mL (0.0-4.9)
[2016-12-09 17:17] LABS: D-DIMER ELISA < 150.00 ng/mLDDU (<230)
[2016-12-09] MEDS ORDERED: DILTIAZEM 24HR180 M3 PO (17:17)
[2016-12-09] MEDS ORDERED: LISINOPRIL10 MG PO (17:18)
[2016-12-09] MEDS ORDERED: MS CONTIN,ORAMO30 MG PO (17:19)
[2016-12-09] MEDS ORDERED: KLOR-CON M1010 MEQ PO (17:19)
[2016-12-09] MEDS ORDERED: SENNA-DOCUSATE1 EAC1 PO (17:20)
[2016-12-09] MEDS ORDERED: NOVOLIN,HU100 UNITS/ SC (17:21)
[2016-12-09 17:38] LABS: Estimated Average Glucose 157 mg/dL (70-123); HEMOGLOBIN A1c (GLYCOHEMOGLOB) 7.1 % HGB (Below 5.7)
[2016-12-09 18:00] VITALS: BP 114/60
[2016-12-09 21:13] VITALS: BP 104/65
[2016-12-10] VITALS (7 sets, daily range): BP systolic 120–140; BP diastolic 59–81
[2016-12-10 01:27] LABS: TROP-I INTERPRETATION NEGATIVE; TROPONIN-I < 0.01 ng/mL (0.0-0.30)
[2016-12-10 05:49] LABS: POINT-OF-CARE USER ID 608261329
[2016-12-10 07:00] LABS: HEMATOCRIT 37.8 % (38.0-50.0); MCH 35.8 PG (29.0-34.0); MCHC 35.2 G/DL (30.0-36.0); MCV 101.9 FL (86-99); MEAN PLAT.VOLUME 10.2 uM^3 (9.0-12.4); PLATELET COUNT 153 K/uL (156-360); RBC DIS.WIDTH-CV 13.1 % (11.8-14.6); RBC DIS.WIDTH-SD 49.1 % (39-53); RED BLOOD COUNT 3.71 M/uL (4.00-5.50); WHITE BLOOD COUNT 7.2 K/uL (4.1-10.2)
[2016-12-10 07:06] LABS: TROP-I INTERPRETATION NEGATIVE; TROPONIN-I 0.01 ng/mL (0.0-0.30)
[2016-12-10 07:10] LABS: ANION GAP 9 MEQ/L (2-14); CHLORIDE 104 MEQ/L (99-109); GFR ESTIMATE (CALCULATED) 49 mL/min/; GLUCOSE 121 mg/dL (70-99); POTASSIUM 3.8 MEQ/L (3.7-5.4); SAMPLE HEMOLYSIS CHECK 0; SAMPLE ICTERIC CHECK 0; SAMPLE LIPEMIA CHECK 0; SODIUM 141 MEQ/L (136-147); UREA NITROGEN (BUN) 38 mg/dL (9-23)
[2016-12-10 08:14] LABS: BILIRUBIN NEGATIVE; BLOOD NEGATIVE; COLOR YELLOW ((YELLOW)); GLUCOSE (STRIP) NEGATIVE; KETONES NEGATIVE; LEUKOCYTES NEGATIVE; NITRITE NEGATIVE; PROTEIN (STRIP) NEGATIVE; SPECIFIC GRAVITY 1.015 (1.000-1.030); UROBILINOGEN 0.2 MG/DL (0.2-1.0)
[2016-12-10 08:21] LABS: ADD MIUA? NO; UCUL ADDED? NO
[2016-12-11 03:32] VITALS: BP 160/100
[2016-12-11 04:31] VITALS: BP 172/94
[2016-12-11 05:44] LABS: POINT-OF-CARE METER ID UU13113725
[2016-12-11 06:24] LABS: HEMATOCRIT 41.6 % (38.0-50.0); MCH 34.4 PG (29.0-34.0); MCHC 34.6 G/DL (30.0-36.0); MCV 99.5 FL (86-99); MEAN PLAT.VOLUME 10.2 uM^3 (9.0-12.4); PLATELET COUNT 171 K/uL (156-360); RBC DIS.WIDTH-CV 12.5 % (11.8-14.6); RBC DIS.WIDTH-SD 45.7 % (39-53); RED BLOOD COUNT 4.18 M/uL (4.00-5.50); WHITE BLOOD COUNT 6.4 K/uL (4.1-10.2)
[2016-12-11 06:59] LABS: ANION GAP 8 MEQ/L (2-14); CHLORIDE 104 MEQ/L (99-109); GFR ESTIMATE (CALCULATED) > 59 mL/min/; GLUCOSE 127 mg/dL (70-99); POTASSIUM 3.6 MEQ/L (3.7-5.4); SAMPLE HEMOLYSIS CHECK 0; SAMPLE ICTERIC CHECK 0; SAMPLE LIPEMIA CHECK 0; SODIUM 141 MEQ/L (136-147); UREA NITROGEN (BUN) 24 mg/dL (9-23)
[2016-12-11 07:42] VITALS: BP 168/99
[2016-12-11] MEDS ORDERED: NOVOLOG PE100 UNITS/ SC (08:10)
[2016-12-11] MEDS ORDERED: TRAMADOL HCL50 MG PO (10:48)
[2016-12-11] MEDS ORDERED: LOPRESSOR100 M1 PO (11:32)
[2016-12-11 12:02] VITALS: BP 161/94
== END 2016-12-11 17:30 | disposition home health service (06) | DRG 917 ==
LOC: EME 13:10 → 5EAST 16:30 → EDOF 16:30 → ENRESERV 16:35 → 5EAST 17:54
PROVIDERS: Emergency Medicine; Internal Medicine
DX: T40.2X1A Poisoning by other opioids, accidental (unintentional), initial encounter (principal); R55 Syncope and collapse; G93.41 Metabolic encephalopathy; N17.9 Acute kidney failure, unspecified; E86.0 Dehydration; I25.10 Atherosclerotic heart disease of native coronary artery without angina pectoris; I10 Essential (primary) hypertension; E78.5 Hyperlipidemia, unspecified; E11.9 Type 2 diabetes mellitus without complications; F31.9 Bipolar disorder, unspecified; K21.9 Gastro-esophageal reflux disease without esophagitis; G30.9 Alzheimer's disease, unspecified; F02.80 Dementia in other diseases classified elsewhere, unspecified severity, without behavioral disturbance, psychotic disturbance, mood disturbance, and anxiety; I48.0 Paroxysmal atrial fibrillation; F41.9 Anxiety disorder, unspecified; G89.29 Other chronic pain; M54.5 Low back pain; I95.9 Hypotension, unspecified; R00.0 Tachycardia, unspecified; Z86.73 Personal history of transient ischemic attack (TIA), and cerebral infarction without residual deficits; Z79.01 Long term (current) use of anticoagulants; Z87.891 Personal history of nicotine dependence; Z95.5 Presence of coronary angioplasty implant and graft; Z79.891 Long term (current) use of opiate analgesic; Z79.82 Long term (current) use of aspirin; Z79.02 Long term (current) use of antithrombotics/antiplatelets; Z79.4 Long term (current) use of insulin
CPT/HCPCS: 70450; 71010; 76770; 80048; 80053; 81003; 82550; 82553; 82948; 83036; 83605; 83735; 84484; 85027; 85379; 87040; 93005; 95819; 99281; 99285; J1815; J7030

== ENCOUNTER 2017-05-10 23:30 | Emergency (ER) | payer OTHER ==
[~2017-05-10] VITALS: Ht 182.9 cm; Wt 128.1 kg
[~2017-05-10 23:30] MED LIST changes: +DILTIAZEM 24HR180 M3 PO; +NOVOLIN,HU100 UNITS/ SC; +NOVOLOG PE100 UNITS/ SC
[2017-05-11 03:22] VITALS: BP 101/72
[2017-05-11] MEDS ORDERED: VITAMIN D2000 UNI1 PO (22:43)
[2017-05-11] MEDS ORDERED: MORPHINE SULFAT15 MG PO (22:44)
[2017-05-11] MEDS ORDERED: MORPHINE SULFAT30 M2 PO (22:45)
[2017-05-11] MEDS ORDERED: BETAMETHASONE D50 G1 TP (22:46)
[2017-05-11] MEDS ORDERED: CARISOPRODOL350 MG PO (22:46)
[2017-05-11] MEDS ORDERED: NITROGLYCERIN0.4 MG SL (22:49)
[2017-05-11] MEDS ORDERED: CARTIA XT180 MG PO (22:52)
[2017-05-11] MEDS ORDERED: LYRICA100 MG PO (22:53)
[2017-05-11] MEDS ORDERED: VALSARTAN-HCTZ1 EAC3 PO (22:53)
[2017-05-11] MEDS ORDERED: LOPRESSOR50 MG PO (22:54)
== END 2017-05-11 03:27 | disposition home or self-care (01) ==
LOC: EME 23:30
DX: R40.0 Somnolence (principal); G89.29 Other chronic pain; M54.5 Low back pain; M25.511 Pain in right shoulder; M25.512 Pain in left shoulder; Z79.891 Long term (current) use of opiate analgesic; G30.9 Alzheimer's disease, unspecified; F02.80 Dementia in other diseases classified elsewhere, unspecified severity, without behavioral disturbance, psychotic disturbance, mood disturbance, and anxiety; I10 Essential (primary) hypertension; E11.9 Type 2 diabetes mellitus without complications; Z79.4 Long term (current) use of insulin; Z79.02 Long term (current) use of antithrombotics/antiplatelets; Z79.82 Long term (current) use of aspirin; Z86.73 Personal history of transient ischemic attack (TIA), and cerebral infarction without residual deficits; Z95.5 Presence of coronary angioplasty implant and graft; Z87.891 Personal history of nicotine dependence
CPT/HCPCS: 99281; 99284

== ENCOUNTER 2017-05-11 13:30 | Inpatient (IN) | payer OTHER ==
[~2017-05-11] VITALS: Ht 182.9 cm; Wt 128.4 kg
[2017-05-11 14:45] LABS: BASOPHIL (%) 0.3 % (0-1); EOSINOPHIL (%) 0 % (0-5); HEMATOCRIT 39.7 % (38.0-50.0); HEMOGLOBIN 13.6 G/DL (12.5-16.6); IMMATURE GRANULOCYTE (%) 0.3 % (0.0-0.7); LYMPHOCYTE COUNT 1.4 K/uL (1.0-2.8); MCH 33.3 PG (29.0-34.0); MCHC 34.3 G/DL (30.0-36.0); MCV 97.1 FL (86-99); MONOCYTE (%) 9.6 % (3-12); MONOCYTE COUNT 0.7 K/uL (0-0.8); NEUTROPHIL (%) 70.8 % (45-76); NEUTROPHIL COUNT 5.2 K/uL (1.8-6.4); PLATELET COUNT 164 K/uL (156-360); RBC DIS.WIDTH-CV 12.7 % (11.8-14.6); RBC DIS.WIDTH-SD 44.9 % (39-53); RED BLOOD COUNT 4.09 M/uL (4.00-5.50); WHITE BLOOD COUNT 7.3 K/uL (4.1-10.2)
[2017-05-11 14:48] LABS: APPEARANCE CLEAR ((CLEAR)); BILIRUBIN NEGATIVE; BLOOD NEGATIVE; COLOR YELLOW ((YELLOW)); GLUCOSE (STRIP) NEGATIVE; KETONES NEGATIVE; LEUKOCYTES NEGATIVE; NITRITE NEGATIVE; PROTEIN (STRIP) NEGATIVE; SPECIFIC GRAVITY 1.017 (1.000-1.030); UCUL ADDED? NO; UROBILINOGEN 0.2 MG/DL (0.2-1.0)
[2017-05-11 14:54] LABS: CHLORIDE 102 mEq/L (99-109); POTASSIUM 3.6 mEq/L (3.7-5.4); SODIUM 140 mEq/L (136-147)
[2017-05-11 14:55] LABS: GLUCOSE 130 mg/dL (70-99)
[2017-05-11 14:59] LABS: CREATININE 1.6 mg/dL (0.6-1.3); GFR ESTIMATE (CALCULATED) 46 mL/min/ (58.99-99999)
[2017-05-11 15:00] LABS: UREA NITROGEN (BUN) 41 mg/dL (9-23)
[2017-05-11 19:33] LABS: TROP-I INTERPRETATION NEGATIVE; TROPONIN-I < 0.01 ng/mL (0.0-0.30)
[2017-05-11] MEDS ORDERED: VITAMIN D2000 UNI1 PO (22:43)
[2017-05-11] MEDS ORDERED: MORPHINE SULFAT15 MG PO (22:44)
[2017-05-11] MEDS ORDERED: MORPHINE SULFAT30 M2 PO (22:45)
[2017-05-11] MEDS ORDERED: CARISOPRODOL350 MG PO (22:46)
[2017-05-11] MEDS ORDERED: BETAMETHASONE D50 G1 TP (22:46)
[2017-05-11] MEDS ORDERED: NITROGLYCERIN0.4 MG SL (22:49)
[2017-05-11] MEDS ORDERED: CARTIA XT180 MG PO (22:52)
[2017-05-11] MEDS ORDERED: VALSARTAN-HCTZ1 EAC3 PO (22:53)
[2017-05-11] MEDS ORDERED: LYRICA100 MG PO (22:53)
[2017-05-11] MEDS ORDERED: LOPRESSOR50 MG PO (22:54)
[2017-05-12 06:52] LABS: HEMATOCRIT 40.2 % (38.0-50.0); MCH 33.9 PG (29.0-34.0); MCHC 34.8 G/DL (30.0-36.0); MCV 97.3 FL (86-99); PLATELET COUNT 148 K/uL (156-360); RBC DIS.WIDTH-CV 12.5 % (11.8-14.6); RBC DIS.WIDTH-SD 44.8 % (39-53); RED BLOOD COUNT 4.13 M/uL (4.00-5.50)
[2017-05-12 07:39] LABS: POTASSIUM 3.6 mEq/L (3.7-5.4)
[2017-05-12 07:44] LABS: GFR ESTIMATE (CALCULATED) > 59 mL/min/ (58.99-99999); SODIUM 139 mEq/L (136-147)
[2017-05-12 07:45] LABS: UREA NITROGEN (BUN) 22 mg/dL (9-23)
[2017-05-12 07:46] LABS: GLUCOSE 170 mg/dL (70-99)
[2017-05-12 07:47] LABS: CHLORIDE 102 mEq/L (99-109)
[2017-05-12 09:22] LABS: ALBUMIN 3.5 g/dL (3.2-4.8)
[2017-05-12 09:25] LABS: TOTAL PROTEIN 6.9 g/dL (6.4-8.3)
[2017-05-12 09:26] LABS: TOTAL BILIRUBIN 0.7 mg/dL (0.0-1.0)
[2017-05-12 09:27] LABS: ALKALINE PHOSPHATASE 86 IU/L (3-129)
[2017-05-12 09:30] LABS: AST (GOT) 43 IU/L (2-34); DIRECT BILIRUBIN 0.3 mg/dL (0.0-0.3)
[2017-05-12 09:31] LABS: ALT (GPT) 29 IU/L (3-49)
[2017-05-12 13:32] VITALS: BP 131/81
[2017-05-12 18:50] VITALS: BP 140/72
[2017-05-12 21:39] VITALS: BP 167/88
[2017-05-12 23:05] VITALS: BP 145/91
[2017-05-13 03:30] VITALS: BP 135/93
[2017-05-13 07:12] LABS: HEMOGLOBIN 12.5 G/DL (12.5-16.6); MCH 32.5 PG (29.0-34.0); MCHC 32.9 G/DL (30.0-36.0); MCV 98.7 FL (86-99); PLATELET COUNT 137 K/uL (156-360); RBC DIS.WIDTH-CV 12.4 % (11.8-14.6); RBC DIS.WIDTH-SD 44.9 % (39-53); RED BLOOD COUNT 3.85 M/uL (4.00-5.50); WHITE BLOOD COUNT 5.9 K/uL (4.1-10.2)
[2017-05-13 07:15] VITALS: BP 159/76
[2017-05-13 07:24] LABS: CHLORIDE 103 MEQ/L (99-109); CREATININE 0.9 MG/DL (0.6-1.3); GFR ESTIMATE (CALCULATED) > 59 mL/min/ (58.99-99999); GLUCOSE 136 mg/dL (70-99); POTASSIUM 4.1 MEQ/L (3.7-5.4); SODIUM 143 MEQ/L (136-147); UREA NITROGEN (BUN) 14 mg/dL (9-23)
[2017-05-13 10:53] VITALS: BP 141/87
[2017-05-13] MEDS ORDERED: OXYCODONE HCL5 MG PO (11:40)
[2017-05-13] MEDS ORDERED: COLACE100 MG PO (11:42)
== END 2017-05-13 13:57 | disposition home health service (06) | DRG 341 ==
LOC: EME 13:30 → 2EAST 21:19 → EDOF 21:19 → ENRESERV 21:22 → 2EAST 05-12 12:55 → EDPENDDISTM 05-13 → EDPENDDISDT 05-13 → 2EAST 05-13 13:57
PROVIDERS: Physician Assistant Medical; Surgery
PROC: 0WQF0ZZ Repair Abdominal Wall, Open Approach (ICD-10-PCS; principal; 2017-05-12)
PROC: 0DTJ4ZZ Resection of Appendix, Percutaneous Endoscopic Approach (ICD-10-PCS; principal; 2017-05-12)
DX: K35.80 Unspecified acute appendicitis (principal); G93.41 Metabolic encephalopathy; K43.2 Incisional hernia without obstruction or gangrene; K74.60 Unspecified cirrhosis of liver; E11.9 Type 2 diabetes mellitus without complications; E86.0 Dehydration; N17.9 Acute kidney failure, unspecified; I48.2 Chronic atrial fibrillation; G30.9 Alzheimer's disease, unspecified; F02.80 Dementia in other diseases classified elsewhere, unspecified severity, without behavioral disturbance, psychotic disturbance, mood disturbance, and anxiety; I10 Essential (primary) hypertension; I25.10 Atherosclerotic heart disease of native coronary artery without angina pectoris; Z95.5 Presence of coronary angioplasty implant and graft; N40.0 Benign prostatic hyperplasia without lower urinary tract symptoms; F31.9 Bipolar disorder, unspecified; E66.9 Obesity, unspecified; F41.9 Anxiety disorder, unspecified; G89.29 Other chronic pain; D69.1 Qualitative platelet defects; E78.5 Hyperlipidemia, unspecified; K21.9 Gastro-esophageal reflux disease without esophagitis; Z68.38 Body mass index [BMI] 38.0-38.9, adult; Z87.891 Personal history of nicotine dependence; K59.00 Constipation, unspecified; Z79.01 Long term (current) use of anticoagulants; Z79.4 Long term (current) use of insulin
CPT/HCPCS: 70450; 74176; 80048; 80076; 81003; 82948; 83605; 84484; 85025; 85027; 85610; 85730; 88304; 93005; 99281; 99285; J0131; J0330; J1170; J1815; J2250; J2270; J2405; J2710; J3010; J7030; S0074